=== PATIENT | female | born 1975 | race Caucasian/White ===

== ENCOUNTER 2016-12-19 13:48 | Outpatient (CLI) | payer OTHER ==
--- NOTE | 2016-12-19 17:24 | DIAGNOSTIC IMAGING REPORT ---
PROCEDURE: US OB RE-EVALUATION INDICATION: UNCERTIN POSTITION; SIZE AND DATES TECHNIQUE: Castro scale, color and spectral Doppler images of the gravid uterus. COMPARISON: OB ultrasound 11/16/2016 FINDINGS: Single intrauterine with footling breech, posterior placenta without previa and heart rate 122 bpm. ALMA measures 18.5 cm, 70th percentile. Normal closed cervix measures 4.1 cm. Diaphragm, kidneys, stomach, four-chamber heart view and profile are within normal limits. BPD 7.4 cm, 29 weeks 4 days; head circumference 27.3 cm, and 10-nfnc-5-day; abdominal circumference 25.5 cm, 29 weeks 5 days; femur length 5.7 cm, 30 weeks. Composite age 29-week 6 days. PEG 01/26/2017. Estimated weight 1459 g plus/minus 219 g (3.22 pounds). IMPRESSION: 1. Single live intrauterine , footling breech, 29 weeks 6 days 2. PEG 01/26/2017, normal interval growth
--- NOTE | 2016-12-19 17:24 | DIAGNOSTIC IMAGING REPORT ---
PROCEDURE: US OB RE-EVALUATION INDICATION: UNCERTIN POSTITION; SIZE AND DATES TECHNIQUE: Castro scale, color and spectral Doppler images of the gravid uterus. COMPARISON: OB ultrasound 11/16/2016 FINDINGS: Single intrauterine with footling breech, posterior placenta without previa and heart rate 122 bpm. ALMA measures 18.5 cm, 70th percentile. Normal closed cervix measures 4.1 cm. Diaphragm, kidneys, stomach, four-chamber heart view and profile are within normal limits. BPD 7.4 cm, 29 weeks 4 days; head circumference 27.3 cm, and 37-pjib-5-day; abdominal circumference 25.5 cm, 29 weeks 5 days; femur length 5.7 cm, 30 weeks. Composite age 29-week 6 days. PEG 01/26/2017. Estimated weight 1459 g plus/minus 219 g (3.22 pounds). IMPRESSION: 1. Single live intrauterine , footling breech, 29 weeks 6 days 2. PEG 01/26/2017, normal interval growth
== END 2016-12-19 23:00 ==
LOC: US SRH 13:48
DX: Z34.93 Encounter for supervision of normal pregnancy, unspecified, third trimester (principal); Z3A.34 34 weeks gestation of pregnancy

== ENCOUNTER 2016-12-26 15:56 | Outpatient (CLI) | payer OTHER | END 2016-12-26 16:50 | disposition home or self-care (01) | LOC: NST SRH 15:56 → OB SRH 15:59 → NST SRH 16:50 | PROC: 4A0HXCZ Measurement of Products of Conception, Cardiac Rate, External Approach (ICD-10-PCS; principal; 2016-12-26) | DX: O47.03 False labor before 37 completed weeks of gestation, third trimester (principal); Z3A.35 35 weeks gestation of pregnancy ==

== ENCOUNTER 2017-01-03 11:03 | Observation (INO) | payer OTHER ==
[~2017-01-03] VITALS: Ht 162.6 cm; Wt 126.1 kg
--- NOTE | 2017-01-03 15:37 | DIAGNOSTIC IMAGING REPORT ---
PROCEDURE: US OB LIMITED INDICATION: TO CHECK POSITION OF THE BABY TECHNIQUE: Transabdominal mcmahan scale and color Doppler imaging was obtained of the 92-wgsq-5-day gravid uterus. COMPARISON: 12/19/2016 FINDINGS: Single live intrauterine is in vertex presentation with spine anterior. Regular heart rate at 143 beats per minute. Placenta is posterior and has a normal appearance without previa or abruption. The cervix is closed and measures 3.1 cm in length. IMPRESSION: 1. Single living intrauterine in vertex presentation, similar compared to the prior study.
--- NOTE | 2017-01-03 15:37 | DIAGNOSTIC IMAGING REPORT ---
PROCEDURE: US OB LIMITED INDICATION: TO CHECK POSITION OF THE BABY TECHNIQUE: Transabdominal mcmahan scale and color Doppler imaging was obtained of the 41-uhyx-1-day gravid uterus. COMPARISON: 12/19/2016 FINDINGS: Single live intrauterine is in vertex presentation with spine anterior. Regular heart rate at 143 beats per minute. Placenta is posterior and has a normal appearance without previa or abruption. The cervix is closed and measures 3.1 cm in length. IMPRESSION: 1. Single living intrauterine in vertex presentation, similar compared to the prior study.
--- NOTE | 2017-01-03 16:32 | DIAGNOSTIC IMAGING REPORT ---
PROCEDURE: US TRANSVAGINAL PROBE INDICATION: CONFIRM CERVICAL LENGTH TECHNIQUE: Transvaginal sonographic imaging of the cervix was performed. COMPARISON: Transabdominal imaging of a gravid uterus performed earlier the same day. FINDINGS: The cervix is closed and measures 3.3 cm in length. No placenta previa or vasa previa. IMPRESSION: 1. Closed cervix without placenta previa. 2. Findings conveyed by the technologist to the floor nurse.
--- NOTE | 2017-01-03 20:13 | HISTORY AND PHYSICAL ---
ADMITTED: 01/03/2017 CHIEF COMPLAINT: 1. Pain and possible labor HISTORY OF PRESENT ILLNESS: A 41-year-old female 1, para 0, EDC 2016, presents with back pain and heartburn. This pain had onset on the day of admission and was quite severe. She contacted our office with complaint of back pain, asking for clearance to see her chiropractor, this was granted. The chiropractor evaluated her, but was concerned it may be primarily abdominal or related issue. The patient returned to my office for evaluation. Head was found to be descended to 0 station, it had been high and floating in the past. Cervix was markedly posterior. The patient was transferred to the hospital for NST and evaluation. She reports no bleeding, no rupture of membranes and no discrete feeling of contractions in the abdomen. She does have some nausea. She denies fevers, chills, URI or UTI symptoms. MEDICAL/SURGICAL HISTORY: Past medical history: Remarkable for mild preeclampsia , history of menometrorrhagia, history of obesity, history of dysfunctional uterine bleeding. MEDICATIONS: 1. vitamins 1 p.o. daily. 2. Iron tablets 325 mg p.o. daily. ALLERGIES: 1. NO KNOWN ALLERGIES. SOCIAL HISTORY: female. Smoking: None. Alcohol: None. Drug use: None. FAMILY HISTORY: Unremarkable. Denies history of cancer or complications in her family. REVIEW OF SYSTEMS: Noncontributory except as noted above. PHYSICAL EXAMINATION: GENERAL: Well-developed, well-nourished obese female in distress. VITAL SIGNS: Blood pressure 137/83, pulse 78, temperature 98.1, respirations 20. HEENT: Clear. NECK: Supple without adenopathy or thyromegaly. CHEST: Clear to auscultation and percussion. HEART: Regular rate and rhythm without murmur. ABDOMEN: Positive bowel sounds, gravid, nontender. BACK: Straight without CVA tenderness. EXTREMITIES: 1+ edema noted. NEUROLOGIC: Intact and symmetric. Deep tendon reflexes are 2+ without clonus. SKIN: Unremarkable. GENITAL: Normal external female genitalia. PELVIC: vertex is at 0 station. Cervix is far posterior and closed, though soft. LAB/IMAGING: Laboratories: NST is reactive with q.3 minute contractions, which are strong and palpable. Glucose 89, BUN 5, creatinine 0.6, sodium 138, potassium 3.9, chloride 105, CO2 25, uric acid 4.0, calcium 10.1, total protein 6.5. Albumin 2.7, total bilirubin 0.9, alk phos 141, AST 82, ALT 44, LDH 134. WBC 10.6, hemoglobin 12.6, hematocrit 37.7, platelets 232,000. Urine reveals 1+ ketones, specific gravity 1.020, pH 7.5, negative for protein, nitrite, leukocyte esterase or blood. Microscopic shows 0-1 red cells, 1-3 white cells, 3 -5 epithelial cells, 3+ bacteria. INR 0.9. Ultrasound: Shows uncomplicated vertex presentation. Placenta appears normal. Cervix is 3 cm in length by ultrasound. IMPRESSION: 1. Latent phase of labor versus false labor with marked pain. 2. Possible early urinary tract infection. 3. Preeclampsia, mild, controlled at rest. 4. A 36-week intrauterine . PLAN: Admit for observation and pain control. The patient has been started empirically on Rocephin pending cultures.
[2017-01-04 09:10] VITALS: BP 135/75
--- NOTE | 2017-01-04 10:00 | NUR ---
Pt up and about after physician visit this am. Contractions present on monitor but not felt much by patient. All of her back pain has resolved, and she feels a little pressure in her pelvic area. VE done by Dr Baird during his visit this am - remains closed and thick. No drainage or leaking of fluid. She has eaten a good breakfast, and is now walking about without difficulty. Keflex given as ordered. D/C orders received from Dr Baird, and pt sent home at 0945 with RX for keflex called in, f/u NST scheduled for next week, and pt to keep her offic appt next week. She is to drink plenty of fluids, and continue to rest. D/C to home in c/o mother and FOB.
--- NOTE | 2017-01-04 10:25 | DISCHARGE SUMMARY ---
ADMIT DATE: 01/03/2017 DISCHARGE DATE: 01/04/2017 ADMITTING DIAGNOSES: 1. labor 2. Urinary tract infection 3. Back pain DISCHARGE DIAGNOSES: 1. False labor 2. Urinary tract infection 3. Back pain BRIEF HISTORY: The patient presented with sudden onset of severe back pain associated with contractions. Bacteriuria was noted on admission. HOSPITAL COURSE: The patient was admitted. She was in an every 2-3 minute labor pattern on arrival with marked back pain. The head descended into the pelvis but the cervix remained closed. She was placed on monitor, given IV fentanyl for pain control, and ultrasound obtained confirming vertex position and a healthy-appearing placenta and fetus. Bacteriuria was noted. The patient was treated with IV Rocephin, although as further urinary tract results became available and it became clear that the urinary tract infection is relatively mild, nevertheless, it may have been instituting factor for the contractions. The patient's pain resolved. She was switched to oral medications and then pain medications stopped. She continued to have contractions, but they became irregular. On the morning of admission, she was ambulated and tolerated ambulation and oral intake without difficulty. She was therefore felt to be stable for discharge home at 36 weeks of . DISPOSITION: Home. DISCHARGE INSTRUCTIONS/MEDICATIONS: vitamins and cephalexin 500 mg p.o. t.i.d. x2 days. Follow up with me in 4 days.
== END 2017-01-04 09:45 | disposition home or self-care (01) ==
LOC: OBC SRH 11:03 → OB SRH 11:05 → OBC SRH 16:46 → OB SRH 16:46
PROVIDERS: ADMIT Family Medicine
DX: O47.03 False labor before 37 completed weeks of gestation, third trimester (principal); O23.43 Unspecified infection of urinary tract in pregnancy, third trimester; O14.03 Mild to moderate pre-eclampsia, third trimester; O09.513 Supervision of elderly primigravida, third trimester; Z3A.36 36 weeks gestation of pregnancy
CPT/HCPCS: 29242; 29243; 29247; 29263; 40003; 40021; 90004; 90074; 90100; 90469; 92680; 92860; 94060; 95059

== ENCOUNTER 2017-01-11 09:29 | Outpatient (CLI) | payer OTHER | END 2017-01-11 10:20 | disposition home or self-care (01) | LOC: OBC SRH 09:29 → OB SRH 09:30 → OBC SRH 10:20 | PROC: 4A0HXCZ Measurement of Products of Conception, Cardiac Rate, External Approach (ICD-10-PCS; principal; 2017-01-11) | DX: O14.93 Unspecified pre-eclampsia, third trimester (principal); Z3A.37 37 weeks gestation of pregnancy ==

== ENCOUNTER 2017-01-24 13:54 | Outpatient (CLI) | payer OTHER | END 2017-01-24 14:45 | disposition home or self-care (01) | LOC: NST SRH 13:54 → OB SRH 13:57 → NST SRH 14:45 | PROC: 4A0HXCZ Measurement of Products of Conception, Cardiac Rate, External Approach (ICD-10-PCS; principal; 2017-01-24) | DX: O14.03 Mild to moderate pre-eclampsia, third trimester (principal); Z3A.39 39 weeks gestation of pregnancy ==

== ENCOUNTER 2017-01-28 11:59 | Inpatient (IN) | payer OTHER ==
--- NOTE | 2017-01-28 13:52 | DIAGNOSTIC IMAGING REPORT ---
PROCEDURE: US ABDOMEN ULTRASOUND-LIMITED INDICATION: RULE OUT CHOLELITHIASIS TECHNIQUE: Castro scale and color Doppler sonographic images of the abdomen were obtained without comparison. COMPARISON: None. FINDINGS: The liver is normal in size, contour, and echotexture. No mass or intrahepatic biliary dilatation. The gallbladder contains multiple gravel like stones. The wall is normal thickness measuring 2 mm No pericholecystic fluid or Humphrey sign. The extrahepatic common duct is normal measuring 6 mm The pancreas is not well seen The abdominal aorta is normal in its course and caliber. The retrohepatic inferior vena cava is patent. There is appropriate hepatopetal flow in the portal vein. The right kidney measures 13 cm in length. There is no perihepatic or perisplenic ascites. Humphries fetus, heart rate 137 IMPRESSION: 1. Cholelithiasis 2. Results were called to [facility]
--- NOTE | 2017-01-29 08:22 | HISTORY AND PHYSICAL ---
ADMITTED: 01/28/2017 CHIEF COMPLAINT: 1. Preeclampsia HISTORY OF PRESENT ILLNESS: A 41-year-old, 1, para 0, estimated date of confinement 01/31/2017, estimated gestational age 40 weeks, presents with a diagnosis of preeclampsia and term intrauterine for induction. The patient's has been uncomplicated except for maternal obesity. Until late in her course, approximately 3-4 weeks ago, the patient began to have elevated blood pressures. These were controlled with bed rest. She then developed mild proteinuria, which also improved with bed rest. She did not develop hyperreflexia. She did develop marked pedal edema. Because of persistent and increasing proteinuria, a decision was made to admit for new induction at term. The patient's NSTs have been reactive on a weekly basis. MEDICAL/SURGICAL HISTORY: history: Uncomplicated except as noted above. Group B strep status negative. labs include negative STD testing. Blood type A positive, hepatitis B surface antigen negative, VDRL negative, HIV negative. Rubella status immune. Also remarkable for dysfunctional uterine bleeding. Surgeries: The patient has history of hymenotomy. MEDICATIONS: 1. vitamins. ALLERGIES: 1. PENICILLIN. SOCIAL HISTORY: female, employed. Smoking: None. Drug use: None. FAMILY HISTORY: Negative for diabetes or preeclampsia. Negative for defects or genetic problems. REVIEW OF SYSTEMS: General: Denies fevers, chills, malaise. HEENT: Denies hearing change, vision change or rhinitis. Respiratory: Denies shortness of breath, cough, or wheezing. Cardiac: Denies chest pain, palpitations, or paroxysmal nocturnal dyspnea. Gastrointestinal: Denies nausea, vomiting, diarrhea, or constipation. Genitourinary: Denies dysuria, frequency, or hematuria. Musculoskeletal: The patient admits to mid back pain, which radiates to the right upper quadrant. This has occurred periodically throughout the and has been controlled with Percocet. It is felt to be musculoskeletal in origin, although there has been some suspicion of possible gallbladder symptomatology. PHYSICAL EXAMINATION: GENERAL: Well-developed, well-nourished female in no acute distress. VITAL SIGNS: Blood pressure 140/90, pulse 80, respirations 20, temperature afebrile. HEENT: Clear. NECK: Supple without adenopathy or thyromegaly. LUNGS: Clear to auscultation and percussion. HEART: Regular rate and rhythm without murmur. ABDOMEN: Gravid, nontender with vertex presentation. heart tones 130 beats per minute BACK: Shows no CVA tenderness. Point of pain is on the vertebrae at approximately T5 level, but there is no tenderness in that location. GENITAL: Normal external female genitalia. Vaginal vault clear. Cervix is high at 30% and fingertip vertex presentation confirmed. EXTREMITIES: Without cyanosis, clubbing but have 2+ edema to the mid mtz. Deep tendon reflexes are 3+ and symmetric without clonus. LAB/IMAGING: Urine dip in the office shows 1+ proteinuria with no evidence of infection. Labs on admission include glucose 86, BUN 8, creatinine 0.5, sodium 137, potassium 4.0, chloride 104, bilirubin 0.2, alkaline phosphatase 122, AST 29, ALT 22. Urine protein 40.1. Urine creatinine random 182. INR 0.9. WBC 9.2, hemoglobin 11.9, hematocrit 35.1, platelets 226. Urinalysis reveals specific gravity 1.020, pH 6.0, negative leukocyte esterase, negative blood, negative nitrites. Abdominal ultrasound performed on admission shows cholelithiasis without evidence of acute inflammation. NST on admission shows a reactive NST without contractions. IMPRESSION: 1. Term intrauterine 2. Preeclampsia, mild 3. Cholelithiasis with intermittent biliary colic but without cholecystitis 4. Back pain, probably secondary to cholelithiasis PLAN: Admit for induction. Anticipate vaginal delivery. Anticipate deferring management of cholelithiasis until status.
--- NOTE | 2017-01-29 20:24 | OPERATIVE REPORT ---
DATE OF SURGERY: 01/29/2017 SURGEON: Fercho Baird MD CATERING TRUCK DRIVER: Jaret Hsieh MD PREOPERATIVE DIAGNOSES: 1. Failure to progress in labor 2. Preeclampsia 3. Term intrauterine POSTOPERATIVE DIAGNOSES: 1. Failure to progress in labor 2. Preeclampsia 3. Term intrauterine PROCEDURE PERFORMED: 1. Primary low transverse section ANESTHESIA: Spinal. COMPLICATIONS: None. ESTIMATED BLOOD LOSS: 550 mL. CONDITION: Stable postprocedure. DRAINS: Mittal catheter. SURGICAL TECHNIQUE: The patient was taken to the operating theater after appropriate consent had been obtained. Spinal anesthesia was induced. The patient was placed in supine position with the right lateral hip roll. Sterile prep and drape was performed in the routine fashion and a Pfannenstiel incision sharply created and carried down sharply through the fascia and to the peritoneum, which was bluntly entered. Bladder blade was placed, bladder flap was created and Andrey ring placed in position. Lower uterine segment was sharply incised and the amnion sharply entered. Clear fluid was obtained. Incision was extended bilaterally bluntly and vertex identified and elevated into the incision and with fundal pressure, delivered onto the abdomen. Vigorous female infant was obtained, Apgars 8 and 9. Cord blood samples were obtained and the was passed to the awaiting nursery team. Placenta was manually extracted and found to be normal on examination. Uterus was depleted with a gauze sponge and ring clamps were placed on the margins of the incision. Cervix was confirmed to be open. Incision was then closed with a 0 Polysorb running locked suture and a second layer of 0 Polysorb suture. For further hemostasis, 3 [id number] sutures were placed and hemostasis obtained. Then 3-0 Polysorb suture was then used to bring together the peritoneum and hemostasis was confirmed. Rectus muscle was loosely opposed with 3-0 sutures. The fascia was then closed with 0 Polysorb suture and hemostasis again confirmed. The subcutaneous tissue was closed with 3-0 Polysorb interrupted sutures and the skin closed with Insorb dissolvable yuri. Hemostasis was confirmed. Sterile dressing was placed. Instrument, sponge, and needle counts were correct.
--- NOTE | 2017-01-29 20:24 | OPERATIVE REPORT ---
DATE OF SURGERY: 01/29/2017 SURGEON: Fercho Baird MD SPINNING DOFFER: Jaret Hsieh MD PREOPERATIVE DIAGNOSES: 1. Failure to progress in labor 2. Preeclampsia 3. Term intrauterine POSTOPERATIVE DIAGNOSES: 1. Failure to progress in labor 2. Preeclampsia 3. Term intrauterine PROCEDURE PERFORMED: 1. Primary low transverse section ANESTHESIA: Spinal. COMPLICATIONS: None. ESTIMATED BLOOD LOSS: 550 mL. CONDITION: Stable postprocedure. DRAINS: Mittal catheter. SURGICAL TECHNIQUE: The patient was taken to the operating theater after appropriate consent had been obtained. Spinal anesthesia was induced. The patient was placed in supine position with the right lateral hip roll. Sterile prep and drape was performed in the routine fashion and a Pfannenstiel incision sharply created and carried down sharply through the fascia and to the peritoneum, which was bluntly entered. Bladder blade was placed, bladder flap was created and Andrey ring placed in position. Lower uterine segment was sharply incised and the amnion sharply entered. Clear fluid was obtained. Incision was extended bilaterally bluntly and vertex identified and elevated into the incision and with fundal pressure, delivered onto the abdomen. Vigorous female infant was obtained, Apgars 8 and 9. Cord blood samples were obtained and the was passed to the awaiting nursery team. Placenta was manually extracted and found to be normal on examination. Uterus was depleted with a gauze sponge and ring clamps were placed on the margins of the incision. Cervix was confirmed to be open. Incision was then closed with a 0 Polysorb running locked suture and a second layer of 0 Polysorb suture. For further hemostasis, 3 [id number] sutures were placed and hemostasis obtained. Then 3-0 Polysorb suture was then used to bring together the peritoneum and hemostasis was confirmed. Rectus muscle was loosely opposed with 3-0 sutures. The fascia was then closed with 0 Polysorb suture and hemostasis again confirmed. The subcutaneous tissue was closed with 3-0 Polysorb interrupted sutures and the skin closed with Insorb dissolvable yuri. Hemostasis was confirmed. Sterile dressing was placed. Instrument, sponge, and needle counts were correct.
[2017-01-30] VITALS: BP 116/61
[2017-01-30 03:30] VITALS: BP 113/61
--- NOTE | 2017-01-30 08:02 | Progress Note ---
Subjective General Post op LTCS and doing well per mom and nursing. Has been up and passing gas. Would like breakfast this am. No concern. Physical Exam Vital Signs / I&Os Vital Signs Date Time Temp Pulse Resp B/P Pulse O2 O2 Flow FiO2 Ox Delivery Rate 01/30 0330 97.9 82 24 113/61 / 0000 97.9 83 24 116/61 03 1835 97.5 77 23 129/74 100 General Appearance Alert HEENT Normal exam Cardiovascular Normal exam Abdomen obese, post op incision without erythema, minimal d/c LAB Results Laboratory Tests 01/30 0505 Hematology Hgb (12.0 - 16.0 gm/dL) 10.2 Hct (36.0 - 46.0 %) 30.9 Assessment and Plan Problem List 1. Term Plan post csection 2. care following delivery Plan doing well, hct stable. Will start on diet and advance. Likely to stay overnight and d/c tomorrow.
[2017-01-30 11:56] VITALS: BP 144/68
[2017-01-30 17:30] VITALS: BP 138/78
[2017-01-30 21:00] VITALS: BP 130/74
[2017-01-31 00:02] VITALS: BP 104/60
[2017-01-31 04:50] VITALS: BP 149/81
--- NOTE | 2017-01-31 06:53 | Progress Note ---
Subjective General Doing well no concerns per mom or nursing staff. No cp,sob, dizziness. No fevers. Has normal lochia. Up and caring for self and baby. Physical Exam Vital Signs / I&Os Vital Signs Date Time Temp Pulse Resp B/P Pulse O2 O2 Flow FiO2 Ox Delivery Rate 01/31 0450 98.1 90 20 149/81 01/31 0002 97.9 91 20 104/60 01/30 2100 98.4 98 18 130/74 01/30 1730 98.6 97 18 138/78 97 01/30 1156 98.8 97 18 144/68 I&O 01/31 0000 01/30 1600 01/30 0800 Intake Total 408 Output Total 451 Balance -43 General Appearance Alert, Cooperative HEENT Normal exam Lungs Clear to auscultation, Normal air movement Cardiovascular Regular rate and rhythm Abdomen obese, inc c/d/i Extremities neg homans Assessment and Plan Problem List 1. care following delivery Plan Post LTCS doing well. No concerns working on BF. D/c today f/u in 2 weeks csection check and PP check at 6 weeks.
[2017-01-31] MEDS ORDERED: OXYCODONE/ACETA1 TA1 PO (06:54)
--- NOTE | 2017-01-31 06:57 | Provider's Discharge Care Plan ---
Problem, Goal, Plan Problem List 1. care following delivery Instructions: Take meds as directed, f/u at 2weeks/6 weeks, No heavy lifting, OK tylenol max 4 g per day ok IBU 600mg q 6hrs PRN
[2017-01-31 09:02] VITALS: BP 132/75
== END 2017-01-31 15:00 | disposition home or self-care (01) | DRG 766 ==
LOC: OB SRH 11:59
PROVIDERS: ADMIT Family Medicine
PROC: 10D00Z1 Extraction of Products of Conception, Low, Open Approach (ICD-10-PCS; principal; 2017-01-29 16:45)
DX: O14.04 Mild to moderate pre-eclampsia, complicating childbirth (principal); Z37.0 Single live birth; O62.1 Secondary uterine inertia; O99.62 Diseases of the digestive system complicating childbirth; K80.20 Calculus of gallbladder without cholecystitis without obstruction; Z3A.39 39 weeks gestation of pregnancy
CPT/HCPCS: 40011; 40021; 50002; 60001; 83366; 83411; 83426; 83468; 83501; 83526; 84038; 85372; 90001; 90004; 90074; 90100; 90155; 90469; 91004; 91162; 91163; 92680; 92860; 94060; 95059

== ENCOUNTER 2017-03-28 20:08 | Emergency (ER) | payer OTHER ==
[~2017-03-28 20:08] MED LIST: OXYCODONE/ACETA1 TA1 PO
--- NOTE | 2017-03-28 22:25 | ED NURSING NOTES ---
Clinical Report - Nurses [facility] [address] [place] [address] 03/28/2017 20:08 Patient: TRISHA ZHOU TRIAGE Triage time 20:13. Acuity: LEVEL 3. Chief Complaint: ABDOMINAL PAIN. Alert. KAVITHA COMA SCORE: Kavitha Coma Scale: 15- eyes open spontaneously (4); best verbal response- oriented x 4 (5); best motor response- obeys commands (6). --20:19 Alistair Gilliland R.N. 20:12 03/28/17. BP: 157/95 taken while sitting. HR: 97. RR: 24 (regular and labored). O2 saturation: 99% on room air. Temp: 97.4 F (oral). Pain level now: 09/03. --20:19 Alistair Gilliland R.N. Weight: 122 kg stated. Height/Length: 64 inches Per Patient. BMI: 46.2. --20:17 Alistair Gilliland R.N. Medications Vitamins Oral. --20:45 Alistair Gilliland R.N. Percocet Oral. --20:45 Alistair Gilliland R.N. The following entry was struck by Alistair Gilliland R.N., 20:45 (03/28/17) Reason - other. <<STRICKEN ENTRY-- Unable to Obtain. --20:14 Alistair Gilliland R.N. --END STRIKE>>. Allergies Penicillins. --20:14 Alistair Gilliland R.N. Medical tape. --20:14 Alistair Gilliland R.N. History Arrived by private vehicle. Historian: patient. Accompanied by family. Onset. ("for several months"). ( pt is Scheduled with her doctor for a gallbladder surgery on April 11, her doctor told her to come to the ER for pain control.). SOCIAL HX: Never smoker. No alcohol use or drug use. ( Denies SI/HI). SELF HARM ASSESSMENT: A self harm assessment was performed. FALL RISK ASSESSMENT: Fall risk assessment completed. No fall risk identified. NUTRITIONAL RISK ASSESSMENT: The nutritional risk assessment revealed no deficiencies. FUNCTIONAL ASSESSMENT: Functional assessment: no impairments noted. LEARNING NEEDS ASSESSMENT: The learning needs assessment revealed no barriers. --20:19 Alistair Gilliland R.N. PROBLEMS: . Cholelithiasis. --20:15 Alistair Gilliland R.N. ADDITIONAL SURGERIES: Dilatation & Curettage. Hymenectomy. Hysteroscopy. --20:45 Alistair Gilliland R.N. Interventions ID band on patient. To treatment room. --20:19 Alistair Gilliland R.N. PHYSICAL ASSESSMENT GENERAL / NEURO / PSYCH: Alert. Oriented X 4. HEENT: Mucous membranes are pink. GI / : Abdomen soft. Abdominal tenderness. SKIN: Skin is warm and dry. --20:19 Alistair iGlliland R.N. 21:20 03/28/17. BP: 143/78. HR: 78. RR: 18 (unlabored). O2 saturation: 96% on room air. Pain level now: 03/04. --21:28 Alistair Gilliland R.N. 21:44 03/28/17. BP: 149/88. HR: 79. O2 saturation: 98% on room air. --21:45 Alistair Gilliland R.N. 22:40:. ( Patient calm and awake, alert and oriented x3). --22:51 Alistair Gilliland R.N. NURSING PROGRESS NOTES Patient gowned. Reassurance given. Two patient identifiers checked. Call light placed in reach. Side rails up x 1. Bed placed in lowest position. Brakes of bed on. Patient ready for evaluation- chart flagged. Patient waiting for evaluation. --20:19 Alistair Gilliland R.N. 20:28 03/28/2017 Site #1 started via IV in the right antecubital space with an 20g angiocath using 1% intra-dermal lidocaine, with aseptic technique and good blood return; one attempt. Blood drawn: rainbow set. Labeled in the presence of the patient and sent to the lab. Saline lock flushed with 10 mL saline. --20:28 Alistair Gilliland R.N. 20:35 03/28/2017 Started bag #1 1000 mL IV Fluids IV NS (Saline); at 1000 mL/hr over 1 hour(s) via site #1. Allergies verified and confirmed 5 rights. IV patency established. IV site checked: no pain, redness, or swelling. IV flushed thoroughly pre- and post-medication administration. Completed per protocol. --20:40 Alistair Gilliland R.N. 20:38 03/28/2017 Dilaudid (HYDROmorphone HCl PF) IVP 1 mg given over 2 minute(s) via site #1. IV patency established. IV site checked: no pain, redness, or swelling. IV flushed thoroughly pre- and post-medication administration. IVP given by RN. --20:40 Alistair Gilliland R.N. 21:25 03/28/2017 Dilaudid (HYDROmorphone HCl PF) IVP 1 mg given over 2 minute(s) via site #1. Allergies verified, confirmed 5 rights and sedative warning given to the patient. IV patency established. IV site checked: no pain, redness, or swelling. IV flushed thoroughly pre- and post-medication administration. IVP given by RN. --21:27 Alistair Gilliland R.N. ( [employer] tech arrived and is with patient). --21:29 Alistair Gilliland R.N. 21:35 03/28/2017 Started bag #1 1000 mL IV Fluids IV NS (Saline); at 1000 mL/hr over 1 hour(s) via site #1. Allergies verified and confirmed 5 rights. IV patency established. IV site checked: no pain, redness, or swelling. IV flushed thoroughly pre- and post-medication administration. Completed per protocol. --23:02 Alistair Gilliland R.N. 21:35 03/28/2017 IV Fluids IV NS Discontinued: completed. Total amount infused: 1000 mL. IV patency established. IV site checked: no pain, redness, or swelling. IV flushed thoroughly. --23:01 Alistair Gilliland R.N. 22:35 03/28/2017 IV Fluids IV NS Discontinued: completed. Total amount infused: 1000 mL. IV patency established. IV site checked: no pain, redness, or swelling. IV flushed thoroughly. --23:02 Alistair Gilliland R.N. 22:45 03/28/2017 Dilaudid (HYDROmorphone HCl PF) IVP 1 mg given over 2 minute(s) via site #1. Allergies verified, confirmed 5 rights and sedative warning given to the patient and patient's urologist physician. IV patency established. IV site checked: no pain, redness, or swelling. IV flushed thoroughly pre- and post-medication administration. IVP given by RN. --22:50 Alistair Gilliland R.N. DISPOSITION / DISCHARGE 22:59 03/28/17. HR: 72. O2 saturation: 94% on room air. --22:59 Alistair Gilliland R.N. 22:45 03/28/17. BP: 128/67. HR: 76. RR: 18. O2 saturation: 97% on room air. Pain level now: 01/04. --23:00 Alistair Gilliland R.N. Departure time: 23:00. Condition at departure: stable. No learning barriers present. Discharge instructions provided and reviewed with the patient. Reviewed warnings (sedation warning and medication warnings). Reviewed medication(s) side effects, precautions, dosing and course information. Treatments reviewed. Reviewed referrals for followup. Patient and urologist physician verbalized understanding. Written instructions provided in Telugu. The patient was discharged home and accompanied by urologist physician. She left the Emergency Department ambulatory and via private vehicle. [employer] Hab[employer] Biologist driving. --23:00 Alistair Gilliland R.N. 23:01 03/28/2017 Site #1 removed upon discharge. Manual pressure and bandage applied. --23:01 Alistair Gilliland R.N. Locked/Released at 03/28/2017 23:04 by Alistair Gilliland R.N.
--- NOTE | 2017-03-28 22:25 | ED CLINICAL REPORT ---
Clinical Report - Physicians/Mid Levels [facility] [address] [place] [address] 03/28/2017 20:08 [id number] Time Seen: 22:11 Mar 28 2017. Arrived- By private vehicle. Historian- patient. HISTORY OF PRESENT ILLNESS Chief Complaint: ABDOMINAL PAIN. It is described as "pain" and it is described as located in the right flank and the right upper quadrant and right abdomen. The patient has had nausea and loss of appetite. No vomiting or diarrhea. (patient is 2 months , with history of cololithiasis, reports pain since around 1 PM. Patient has taken 2 Percocet, with some relief. Denies any shortness of breath. Denies any urgency or frequency. Patient denies any fatty or fried food. Had rice in the afternoon. Reports similar pain previously. Denies any shortness of breath, fevers or cough.). REVIEW OF SYSTEMS No constipation, difficulty with urination, pain with urination, fever or sore throat. No blurred vision or chills. All systems otherwise negative, except as recorded above. 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 Problems: . Cholelithiasis. Additional Surgeries: Dilatation & Curettage. Hymenectomy. Hysteroscopy. Medications: Percocet Oral. Vitamins Oral. Allergies: Medical tape. Penicillins. SOCIAL HISTORY Never smoker. No alcohol use. ADDITIONAL NOTES The nursing notes have been reviewed. PHYSICAL EXAM Vital Signs: 03/28/2017 20:12 BP: 157/95. HR: 97. RR: 24. O2 saturation: 99%. Temp: 97.4 F. Pain level now: 10/10. Appearance: Alert. No acute distress. ENT: Ears normal. Nose normal. No pharyngeal erythema or tonsillar exudate. Neck: Normal inspection. No lymphadenopathy. CVS: Normal heart rate and rhythm. Heart sounds normal. Respiratory: No respiratory distress. Breath sounds normal. No accessory muscle use. Abdomen: Soft. Moderate tenderness in the right upper quadrant and epigastric area with guarding present. (c section scar c/d/i). Back: Normal inspection. No CVA tenderness. Skin: Skin warm. Normal skin color. No rash. Neuro: Oriented X 3. LABS, X-RAYS, AND EKG Laboratory Tests: UA-Culture if indicated: (ESVIN: 03/28/2017 20:25) ( [facility] 03/28/[facility] 21:14) Final results Test Result Flag Units (Reference) URINE COLOR YELLOW URINE APPEARANCE SL CLOUDY URINE GLUCOSE NEGATIVE (NEGATIVE) URINE BILIRUBIN NEGATIVE (NEGATIVE) URINE KETONE NEGATIVE (NEGATIVE) URINE SPECIFIC GRAVITY 1.025 (1.010-1.030) URINE PH 6.0 (5.0-8.0) URINE PROTEIN NEGATIVE (NEGATIVE) URINE UROBILINOGEN 0.2 EU/dL (0.2-1.0) URINE NITRITE NEGATIVE (NEGATIVE) URINE BLOOD NEGATIVE (NEGATIVE) URINE LEUK ESTERASE NEGATIVE (NEGATIVE) URINE RBC NONE SEEN rbc/hpf (0-1) URINE WBC 1-3 wbc/hpf (0-1) URINE EPITHELIAL CELLS >15 EPI/hpf (0-5) URINE BACTERIA FEW (1+) (NONE SEEN) URINE COMMENT CULT NOT INDICATED URINE CULTURES ARE SET-UP BASED ON THE FOLLOWING CRITERIA:POSITIVE NITRITEPOSITIVE LEUKOCYTE ESTERASEGREATER THAN 10 WHITE BLOOD CELLSMODERATE (2+) OR GREATER BACTERIA CBC w Diff: (ESVIN: 03/28/2017 20:25) ( [facility] 03/28/2017 20:52) Final results Test Result Flag Units (Reference) WHITE BLOOD COUNT 9.9 K/uL (4.5-11.5) RED BLOOD COUNT 4.38 M/uL (4.00-5.20) HEMOGLOBIN 13.2 gm/dL (12.0-16.0) HEMATOCRIT 39.4 % (36.0-46.0) MEAN CELL VOLUME 90 fL (80-100) MEAN CORPUSCULAR HGB 30 pg (26-34) MEAN CORPUSCULAR HGB CONC 34 g/dL (31-37) RED CELL DISTRIBUTION WIDTH 13.3 % (11.6-14.8) PLATELET COUNT 264 K/uL (150-400) NEUTROPHIL % 78.9 H % (50-75) LYMPH % 12.4 L % (25-40) MONO % 7.5 % (3-14) EOSINOPHIL % 1.2 % (0-4) BASOPHIL % 0 % (0-2) Lipase: (ESVIN: 03/28/2017 20:25) ( [facility] 03/28/2017 21:13) Final results Test Result Flag Units (Reference) LIPASE 105 U/L (73-393) CMP: (ESVIN: 03/28/2017 20:25) ( M[facility] 03/28/2017 21:13) Final results Test Result Flag Units (Reference) GLUCOSE 103 mg/dL (70-110) BUN 13 mg/dL (7-18) CREATININE 0.7 mg/dL (0.6-1.3) Estimated GFR >60 mL/min Estimated GFR- >60 mL/min Note: Persistent reduction over 3 months in eGFR<60 mL/min/1.73 m2 defines CKD. Patients with eGFR values>=60 mL/min/1.73 m2 may also have CKD if evidence ofpersistent proteinuria. Additional information may be foundat www.[email or web address].org. SODIUM 143 mmol/L (136-145) POTASSIUM 4.0 mmol/L (3.5-5.1) CHLORIDE 105 mmol/L (98-107) CARBON DIOXIDE 25 mmol/L (21-32) CALCIUM 8.6 mg/dL (8.5-10.1) TOTAL PROTEIN 7.3 g/dL (6.4-8.2) ALBUMIN 3.8 g/dL (3.3-5.0) BILIRUBIN, TOTAL 0.7 mg/dL (0.0-1.0) ALKALINE PHOSPHATASE 159 H U/L (46-116) AST (SGOT) 114 H U/L (15-37) ALT (SGPT) 88 H U/L (12-78) . Note - Tests: (US : Abd with cbc of 9, some contractions with gb, otherwise normal wall + murphys). PROGRESS AND PROCEDURES Course of Care: Patient here in the ER with acute cholelithiasis, questionable cholecystitis, no leukocytosis. No gallbladder wall thickening, slightly enlarged common bile duct. Patient at this time was given multiple options including hospitalization, and possible and likely surgery tomorrow, in addition she was given option to go home return if worsening, or follow-up with Dr. Thompson, or continue her scheduled surgery on the . Patient had a long lengthy discussion with her mom and family reports to this, and inquired about the possibility of scheduled surgery for tomorrow, Jay being discharged currently, this is a slightly typical option, as there are o sore tomorrow. I discussed this with the patient, and at this time she wishes to go home. I do find is appropriate, she is in no acute distress, given 3 doses of Dilaudid, patient is breast-feeding, urged to pump and dump, and to return if any symptoms worsen. No signs of acute leukocytosis, no gallbladder wall thickening. Patient to return if any symptoms worsen acutely. Nonseptic patient, has Percocet at home. 03/28/2017 21:44 BP: 149/88. HR: 79. O2 saturation: 98%. 03/28/2017 21:20 BP: 143/78. HR: 78. RR: 18. O2 saturation: 96%. Pain level now: 4/10. Patient is stable. Symptoms better. Patient/family counseled. Disposition: Discharged. CLINICAL IMPRESSION Cholelithiasis. INSTRUCTIONS Drink plenty of fluids. (can breast feed after about 4-5 hours from Dilauidid). (Electronically signed by Esther Jacob P.A.-C 03/28/2017 22:45)
--- NOTE | 2017-03-28 22:25 | ED ORDER SUMMARY ---
..... Patient: TRISHA ZHOU OrderSheet [facility] VisitID: [id number] [address] [place] [address] 41y, F Registration Date/Time: 03/28/2017 ORDER SHEET Weight: 122.0 kg (stated) Allergies: Penicillins, Medical tape GENERAL ORDERS: CBC w Diff Urgent (20:23 03/28/2017 EKoroleva P.A.-C) (20:27 DDavis R.N.) CMP Urgent (20:03/28/2017 EKoroleva P.A.-C) (20:27 DDavis R.N.) Lipase Urgent (20:03/28/2017 EKoroleva P.A.-C) (20:27 DDavis R.N.) UA-Culture if indicated Urgent (20:23 03/28/2017 EKoroleva P.A.-C) (Ack 20:28 [facility] Out[facility] Phlebotomist) (20:35 TBowen R.N.) US Abdomen Limited (Yes) Urgent (20:30 03/28/2017 EKoroleva P.A.-C) (Ack 20:35 [facility] Outpatient Phlebotomist) MEDICATION ORDERS: IV FLUIDS: IV NS : initial bolus 1000 mL (1000 mL/hr), then 1000 mL/hr for X1 (NOW); Lewis (20:23 03/28/2017 EKoroleva P.A.-C) (20:40 DDavis R.N.) Dilaudid IV 1 mg (HIGH ALERT MEDICATION, NOW) (20:23 03/28/2017 EKoroleva P.A.-C) (20:40 DDavis R.N.) Dilaudid IV 1 mg (HIGH ALERT MEDICATION, NOW) (21:02 03/28/2017 EKoroleva P.A.-C) (Ack 21:20 DDavis R.N.) (21:28 DDavis R.N.) Dilaudid IV 1 mg (HIGH ALERT MEDICATION, NOW) (22:25 03/28/2017 EKoroleva P.A.-C) (Ack 22:36 DDavis R.N.) (22:50 DDavis R.N.) ORDER SHEET NOTES: [Electronically signed by Esther Jacob P.A.-C (22:45 03/28/2017)] [Electronically signed by Alistair Gilliland R.N. (23:04 03/28/2017)] [Electronically locked/signed by Alistair Gilliland R.N. (23:04 03/28/2017)]
--- NOTE | 2017-03-28 22:25 | ED ORDER SUMMARY ---
..... Patient: TRISHA ZHOU OrderSheet [facility] VisitID: [id number] [address] [place] [address] 41y, F Registration Date/Time: 03/28/2017 ORDER SHEET Weight: 122.0 kg (stated) Allergies: Penicillins, Medical tape GENERAL ORDERS: CBC w Diff Urgent (20:23 03/28/2017 EKoroleva P.A.-C) (20:27 DDavis R.N.) CMP Urgent (20:03/28/2017 EKoroleva P.A.-C) (20:27 DDavis R.N.) Lipase Urgent (20:03/28/2017 EKoroleva P.A.-C) (20:27 DDavis R.N.) UA-Culture if indicated Urgent (20:23 03/28/2017 EKoroleva P.A.-C) (Ack 20:28 [employer] [facility] Enterprise Resource Analyst) (20:35 TBowen R.N.) US Abdomen Limited (Yes) Urgent (20:30 03/28/2017 EKoroleva P.A.-C) (Ack 20:35 [employer] [facility] Enterprise Resource Analyst) MEDICATION ORDERS: IV FLUIDS: IV NS : initial bolus 1000 mL (1000 mL/hr), then 1000 mL/hr for X1 (NOW); Lewis (20:23 03/28/2017 EKoroleva P.A.-C) (20:40 DDavis R.N.) Dilaudid IV 1 mg (HIGH ALERT MEDICATION, NOW) (20:23 03/28/2017 EKoroleva P.A.-C) (20:40 DDavis R.N.) Dilaudid IV 1 mg (HIGH ALERT MEDICATION, NOW) (21:02 03/28/2017 EKoroleva P.A.-C) (Ack 21:20 DDavis R.N.) (21:28 DDavis R.N.) Dilaudid IV 1 mg (HIGH ALERT MEDICATION, NOW) (22:25 03/28/2017 EKoroleva P.A.-C) (Ack 22:36 DDavis R.N.) (22:50 DDavis R.N.) ORDER SHEET NOTES: [Electronically signed by Esther Jacob P.A.-C (22:45 03/28/2017)] [Electronically signed by Alistair Gilliland R.N. (23:04 03/28/2017)] [Electronically locked/signed by Alistair Gilliland R.N. (23:04 03/28/2017)]
--- NOTE | 2017-03-28 22:25 | ED NURSING NOTES ---
Clinical Report - Nurses [facility] [address] [place] [address] 03/28/2017 20:08 Patient: TRISHA ZHOU TRIAGE Triage time 20:13. Acuity: LEVEL 3. Chief Complaint: ABDOMINAL PAIN. Alert. KAVITHA COMA SCORE: Kavitha Coma Scale: 15- eyes open spontaneously (4); best verbal response- oriented x 4 (5); best motor response- obeys commands (6). --20:19 Alistair Gilliland R.N. 20:12 03/28/17. BP: 157/95 taken while sitting. HR: 97. RR: 24 (regular and labored). O2 saturation: 99% on room air. Temp: 97.4 F (oral). Pain level now: 09/03. --20:19 Alistair Gilliland R.N. Weight: 122 kg stated. Height/Length: 64 inches Per Patient. BMI: 46.2. --20:17 Alistair Gilliland R.N. Medications Vitamins Oral. --20:45 Alistair Gilliland R.N. Percocet Oral. --20:45 Alistair Gilliland R.N. The following entry was struck by Alistair Gilliland R.N., 20:45 (03/28/17) Reason - other. <<STRICKEN ENTRY-- Unable to Obtain. --20:14 Alistair Gilliland R.N. --END STRIKE>>. Allergies Penicillins. --20:14 Alistair Gilliland R.N. Medical tape. --20:14 Alistair Gilliland R.N. History Arrived by private vehicle. Historian: patient. Accompanied by family. Onset. ("for several months"). ( pt is Scheduled with her doctor for a gallbladder surgery on April 11, her doctor told her to come to the ER for pain control.). SOCIAL HX: Never smoker. No alcohol use or drug use. ( Denies SI/HI). SELF HARM ASSESSMENT: A self harm assessment was performed. FALL RISK ASSESSMENT: Fall risk assessment completed. No fall risk identified. NUTRITIONAL RISK ASSESSMENT: The nutritional risk assessment revealed no deficiencies. FUNCTIONAL ASSESSMENT: Functional assessment: no impairments noted. LEARNING NEEDS ASSESSMENT: The learning needs assessment revealed no barriers. --20:19 Alistair Gilliland R.N. PROBLEMS: . Cholelithiasis. --20:15 Alistair Gilliland R.N. ADDITIONAL SURGERIES: Dilatation & Curettage. Hymenectomy. Hysteroscopy. --20:45 Alistair Gilliland R.N. Interventions ID band on patient. To treatment room. --20:19 Alistair Gilliland R.N. PHYSICAL ASSESSMENT GENERAL / NEURO / PSYCH: Alert. Oriented X 4. HEENT: Mucous membranes are pink. GI / : Abdomen soft. Abdominal tenderness. SKIN: Skin is warm and dry. --20:19 Alistair Gilliland R.N. 21:20 03/28/17. BP: 143/78. HR: 78. RR: 18 (unlabored). O2 saturation: 96% on room air. Pain level now: 03/04. --21:28 Alistair Gilliland R.N. 21:44 03/28/17. BP: 149/88. HR: 79. O2 saturation: 98% on room air. --21:45 Alistair Gilliland R.N. 22:40:. ( Patient calm and awake, alert and oriented x3). --22:51 Alistair Gilliland R.N. NURSING PROGRESS NOTES Patient gowned. Reassurance given. Two patient identifiers checked. Call light placed in reach. Side rails up x 1. Bed placed in lowest position. Brakes of bed on. Patient ready for evaluation- chart flagged. Patient waiting for evaluation. --20:19 Alistair Gilliland R.N. 20:28 03/28/2017 Site #1 started via IV in the right antecubital space with an 20g angiocath using 1% intra-dermal lidocaine, with aseptic technique and good blood return; one attempt. Blood drawn: rainbow set. Labeled in the presence of the patient and sent to the lab. Saline lock flushed with 10 mL saline. --20:28 Alistair Gilliland R.N. 20:35 03/28/2017 Started bag #1 1000 mL IV Fluids IV NS (Saline); at 1000 mL/hr over 1 hour(s) via site #1. Allergies verified and confirmed 5 rights. IV patency established. IV site checked: no pain, redness, or swelling. IV flushed thoroughly pre- and post-medication administration. Completed per protocol. --20:40 Alistair Gilliland R.N. 20:38 03/28/2017 Dilaudid (HYDROmorphone HCl PF) IVP 1 mg given over 2 minute(s) via site #1. IV patency established. IV site checked: no pain, redness, or swelling. IV flushed thoroughly pre- and post-medication administration. IVP given by RN. --20:40 Alistair Gilliland R.N. 21:25 03/28/2017 Dilaudid (HYDROmorphone HCl PF) IVP 1 mg given over 2 minute(s) via site #1. Allergies verified, confirmed 5 rights and sedative warning given to the patient. IV patency established. IV site checked: no pain, redness, or swelling. IV flushed thoroughly pre- and post-medication administration. IVP given by RN. --21:27 Alistair Gilliland R.N. ( [email or web address] tech arrived and is with patient). --21:29 Alistair Gilliland R.N. 21:35 03/28/2017 Started bag #1 1000 mL IV Fluids IV NS (Saline); at 1000 mL/hr over 1 hour(s) via site #1. Allergies verified and confirmed 5 rights. IV patency established. IV site checked: no pain, redness, or swelling. IV flushed thoroughly pre- and post-medication administration. Completed per protocol. --23:02 Alistair Gilliland R.N. 21:35 03/28/2017 IV Fluids IV NS Discontinued: completed. Total amount infused: 1000 mL. IV patency established. IV site checked: no pain, redness, or swelling. IV flushed thoroughly. --23:01 Alistair Gilliland R.N. 22:35 03/28/2017 IV Fluids IV NS Discontinued: completed. Total amount infused: 1000 mL. IV patency established. IV site checked: no pain, redness, or swelling. IV flushed thoroughly. --23:02 Alistair Gilliland R.N. 22:45 03/28/2017 Dilaudid (HYDROmorphone HCl PF) IVP 1 mg given over 2 minute(s) via site #1. Allergies verified, confirmed 5 rights and sedative warning given to the patient and patient's detective automobile section. IV patency established. IV site checked: no pain, redness, or swelling. IV flushed thoroughly pre- and post-medication administration. IVP given by RN. --22:50 Alistair Gilliland R.N. DISPOSITION / DISCHARGE 22:59 03/28/17. HR: 72. O2 saturation: 94% on room air. --22:59 Alistair Gilliland R.N. 22:45 03/28/17. BP: 128/67. HR: 76. RR: 18. O2 saturation: 97% on room air. Pain level now: 01/04. --23:00 Alistair Gilliland R.N. Departure time: 23:00. Condition at departure: stable. No learning barriers present. Discharge instructions provided and reviewed with the patient. Reviewed warnings (sedation warning and medication warnings). Reviewed medication(s) side effects, precautions, dosing and course information. Treatments reviewed. Reviewed referrals for followup. Patient and detective automobile section verbalized understanding. Written instructions provided in Bulgarian. The patient was discharged home and accompanied by detective automobile section. She left the Emergency Department ambulatory and via private vehicle. Tab Card Press Operator driving. --23:00 Alistair Gilliland R.N. 23:01 03/28/2017 Site #1 removed upon discharge. Manual pressure and bandage applied. --23:01 Alistair Gilliland R.N. Locked/Released at 03/28/2017 23:04 by Alistair Gilliland R.N.
--- NOTE | 2017-03-28 22:46 | DIAGNOSTIC IMAGING REPORT ---
PROCEDURE: US ABDOMEN ULTRASOUND-LIMITED INDICATION: RUQ PAIN TECHNIQUE: Castro scale and color Doppler sonographic images of the abdomen were obtained. COMPARISON: Abdominal ultrasound 01/28/2017 FINDINGS: Enlarged liver (22 cm) with diffuse increased echogenicity. Multiple mobile gravel like gallstones. There is no wall thickening. Dilation of the common bile duct, 8 mm. Normal pancreas. IVC is patent. Normal hepatopetal flow. Normal right kidney measures 13.3 cm. IMPRESSION: 1. Cholelithiasis with dilation of the common bile duct suspicious for a distal obstruction. Recommend nuclear medicine HIDA scan. 2. Hepatomegaly and steatosis
--- NOTE | 2017-03-28 23:05 | ED DISCHARGE INSTRUCTIONS ---
Patient: TRISHA ZHOU General Instructions [facility] VisitID: [id number] [place] [address] 41y, F Registration Date/Time: 03/28/2017 Cholelithiasis. INSTRUCTIONS Drink plenty of fluids. (can breast feed after about 4-5 hours from Dilauidid). ADDITIONAL INFORMATION GallstonesWith Biliary Colic [Confirmed Dx] The abdominal pain that you have today is due to spasm of the gallbladder. The gallbladder is a small sac under the liver which stores and releases bile. Bile is a fluid that aids in the digestion of fat. A gallstone may form inside the gallbladder and block the flow of bile fluid. This causes mild to severe crampy pain in the mid or right upper abdomen with nausea and vomiting. Home Care: Rest in bed and follow a clear liquid diet until feeling better. If pain or nausea medicine was given to help with your symptoms, take these as directed. Fat in your diet makes the gallbladder contract and may cause increased pain. Therefore, avoid fat in your diet over the next two days and follow a low-fat diet after that. If you are overweight, a low-fat diet will also help you lose weight. Follow Up with your doctor. There is a 50% chance that you will have another episode of pain from your gallstones during the next 2 years. Removal of the gallbladder is the treatment of choice to prevent this. Schedule an appointment with your own doctor during the next week to discuss the treatment options. Get Prompt Medical Attention if any of the following occur: Pain gets worse or moves to the right lower abdomen Repeated vomiting Swelling of the abdomen Pain lasts over 6 hours Fever of 100.4F (38C) or higher, or as directed by your healthcare provider Weakness, dizziness or fainting Dark urine or light colored stools Yellow color of the skin or eyes Chest, arm, back, neck or jaw pain You have been given the following additional information: Biliary Colic With Gallstone (Confirmed) (Electronically signed by Esther Jacob P.A.-C 03/28/2017 22:45)
--- NOTE | 2017-03-28 23:05 | ED MED RECONCILIATION SUMMARY ---
Patient: TRISHA ZHOU Medication Reconciliation Report [facility] VisitID: [id number] [address] [place] [address] 41y, F Registration Date/Time: 03/28/2017 Weight: 122.0 kg Height/Length: 64 in. BMI: 46.2 ALLERGIES: Medical tape, Penicillins The patient's Home Medications are listed below: THE FOLLOWING MEDICATIONS NEED TO BE RECONCILED: Percocet Oral Vitamins Oral The source(s) of the original Home Medication information: Not obtained. The following Medications were given to the patient in the Emergency Department: IV NS IV Fluids bolus 0, then 1000 mL/hr, administered: 03/28/2017 8:35:00 PM Dilaudid [IVP] IVP 1 mg, administered: 03/28/2017 8:38:00 PM Dilaudid [IVP] IVP 1 mg, administered: 03/28/2017 9:25:00 PM Dilaudid [IVP] IVP 1 mg, administered: 03/28/2017 10:45:00 PM IV NS IV Fluids bolus 0, then 1000 mL/hr, administered: 03/28/2017 9:35:00 PM The following Medications were prescribed to the patient: None.
--- NOTE | 2017-03-28 23:05 | ED MAR SUMMARY ---
..... Medication Administration Record [facility] [address] [place] [address] Patient: TRISHA ZHOU Visit ID: [id number] 41y, F Weight: 122.0 kg Height/Length: 64 in BMI: 46.2 ALLERGIES: Medical tape, Penicillins Start 20:35 03/28/2017 Alistair Gilliland R.N., Stop 21:35 03/28/2017 Alistair Gilliland R.N. Medication Administered: IV NS (SALINE), Dose: IV Fluids over 1 hour(s), Rate: 1000 mL/hr, Dispensed: 1000 mL bag, Site: #1 right AC. Medication Ordered: IV NS : initial bolus 1000 mL (1000 mL/hr), then 1000 mL/hr for X1 (NOW); Lewis. Given 20:38 03/28/2017 Alistair Gilliland R.N. Medication Administered: DILAUDID [IVP] (HYDROMORPHONE HCL PF), Dose: 1 mg IVP over 2 minute(s), Site: #1 right AC. Medication Ordered: Dilaudid IV 1 mg (HIGH ALERT MEDICATION, NOW). Given 21:25 03/28/2017 Alistair Gilliland R.N. Medication Administered: DILAUDID [IVP] (HYDROMORPHONE HCL PF), Dose: 1 mg IVP over 2 minute(s), Site: #1 right AC. Medication Ordered: Dilaudid IV 1 mg (HIGH ALERT MEDICATION, NOW). Start 21:35 03/28/2017 Alistair Gilliland R.N., Stop 22:35 03/28/2017 Alistair Gilliland R.N. Medication Administered: IV NS (SALINE), Dose: IV Fluids over 1 hour(s), Rate: 1000 mL/hr, Dispensed: 1000 mL bag, Site: #1 right AC. Medication Ordered: IV NS : initial bolus 1000 mL (1000 mL/hr), then 1000 mL/hr for X1 (NOW); Lewis. Given 22:45 03/28/2017 Alistair Gilliland R.N. Medication Administered: DILAUDID [IVP] (HYDROMORPHONE HCL PF), Dose: 1 mg IVP over 2 minute(s), Site: #1 right AC. Medication Ordered: Dilaudid IV 1 mg (HIGH ALERT MEDICATION, NOW).
--- NOTE | 2017-03-28 23:05 | ED MAR SUMMARY ---
..... Medication Administration Record [facility] [address] [place] [address] Patient: TRISHA ZHOU Visit ID: [id number] 41y, F Weight: 122.0 kg Height/Length: 64 in BMI: 46.2 ALLERGIES: Medical tape, Penicillins Start 20:35 03/28/2017 Alistair Gilliland R.N., Stop 21:35 03/28/2017 Alistair Gilliland R.N. Medication Administered: IV NS (SALINE), Dose: IV Fluids over 1 hour(s), Rate: 1000 mL/hr, Dispensed: 1000 mL bag, Site: #1 right AC. Medication Ordered: IV NS : initial bolus 1000 mL (1000 mL/hr), then 1000 mL/hr for X1 (NOW); Lewis. Given 20:38 03/28/2017 Alistair Gilliland R.N. Medication Administered: DILAUDID [IVP] (HYDROMORPHONE HCL PF), Dose: 1 mg IVP over 2 minute(s), Site: #1 right AC. Medication Ordered: Dilaudid IV 1 mg (HIGH ALERT MEDICATION, NOW). Given 21:25 03/28/2017 Alistair Gilliland R.N. Medication Administered: DILAUDID [IVP] (HYDROMORPHONE HCL PF), Dose: 1 mg IVP over 2 minute(s), Site: #1 right AC. Medication Ordered: Dilaudid IV 1 mg (HIGH ALERT MEDICATION, NOW). Start 21:35 03/28/2017 Alistair Gilliland R.N., Stop 22:35 03/28/2017 Alistair Gilliland R.N. Medication Administered: IV NS (SALINE), Dose: IV Fluids over 1 hour(s), Rate: 1000 mL/hr, Dispensed: 1000 mL bag, Site: #1 right AC. Medication Ordered: IV NS : initial bolus 1000 mL (1000 mL/hr), then 1000 mL/hr for X1 (NOW); Lewis. Given 22:45 03/28/2017 Alistair Gilliland R.N. Medication Administered: DILAUDID [IVP] (HYDROMORPHONE HCL PF), Dose: 1 mg IVP over 2 minute(s), Site: #1 right AC. Medication Ordered: Dilaudid IV 1 mg (HIGH ALERT MEDICATION, NOW).
--- NOTE | 2017-03-28 23:05 | ED DISCHARGE INSTRUCTIONS ---
Patient: TRISHA ZHOU General Instructions [facility] VisitID: [id number] [place] [address] 41y, F Registration Date/Time: 03/28/2017 Cholelithiasis. INSTRUCTIONS Drink plenty of fluids. (can breast feed after about 4-5 hours from Dilauidid). ADDITIONAL INFORMATION GallstonesWith Biliary Colic [Confirmed Dx] The abdominal pain that you have today is due to spasm of the gallbladder. The gallbladder is a small sac under the liver which stores and releases bile. Bile is a fluid that aids in the digestion of fat. A gallstone may form inside the gallbladder and block the flow of bile fluid. This causes mild to severe crampy pain in the mid or right upper abdomen with nausea and vomiting. Home Care: Rest in bed and follow a clear liquid diet until feeling better. If pain or nausea medicine was given to help with your symptoms, take these as directed. Fat in your diet makes the gallbladder contract and may cause increased pain. Therefore, avoid fat in your diet over the next two days and follow a low-fat diet after that. If you are overweight, a low-fat diet will also help you lose weight. Follow Up with your doctor. There is a 50% chance that you will have another episode of pain from your gallstones during the next 2 years. Removal of the gallbladder is the treatment of choice to prevent this. Schedule an appointment with your own doctor during the next week to discuss the treatment options. Get Prompt Medical Attention if any of the following occur: Pain gets worse or moves to the right lower abdomen Repeated vomiting Swelling of the abdomen Pain lasts over 6 hours Fever of 100.4F (38C) or higher, or as directed by your healthcare provider Weakness, dizziness or fainting Dark urine or light colored stools Yellow color of the skin or eyes Chest, arm, back, neck or jaw pain You have been given the following additional information: Biliary Colic With Gallstone (Confirmed) (Electronically signed by Esther Jacob P.A.-C 03/28/2017 22:45)
--- NOTE | 2017-03-28 23:05 | ED MED RECONCILIATION SUMMARY ---
Patient: TRISHA ZHOU Medication Reconciliation Report [facility] VisitID: [id number] [address] [place] [address] 41y, F Registration Date/Time: 03/28/2017 Weight: 122.0 kg Height/Length: 64 in. BMI: 46.2 ALLERGIES: Medical tape, Penicillins The patient's Home Medications are listed below: THE FOLLOWING MEDICATIONS NEED TO BE RECONCILED: Percocet Oral Vitamins Oral The source(s) of the original Home Medication information: Not obtained. The following Medications were given to the patient in the Emergency Department: IV NS IV Fluids bolus 0, then 1000 mL/hr, administered: 03/28/2017 8:35:00 PM Dilaudid [IVP] IVP 1 mg, administered: 03/28/2017 8:38:00 PM Dilaudid [IVP] IVP 1 mg, administered: 03/28/2017 9:25:00 PM Dilaudid [IVP] IVP 1 mg, administered: 03/28/2017 10:45:00 PM IV NS IV Fluids bolus 0, then 1000 mL/hr, administered: 03/28/2017 9:35:00 PM The following Medications were prescribed to the patient: None.
== END 2017-03-28 23:01 | disposition home or self-care (01) ==
LOC: ED SRH 20:08
DX: K80.20 Calculus of gallbladder without cholecystitis without obstruction (principal); Z88.0 Allergy status to penicillin
CPT/HCPCS: 90004; 90100; 92235; 95059

== ENCOUNTER 2017-04-01 10:41 | Day surgery (SDC) | payer OTHER ==
[~2017-04-01] VITALS: Ht 162.6 cm; Wt 121.0 kg
--- NOTE | 2017-04-01 14:53 | DIAGNOSTIC IMAGING REPORT ---
PROCEDURE: XR INTRAOPERATIVE LAP SUPA INDICATION: GALLSTONES TECHNIQUE: Intraoperative fluoroscopy provided for Dr. Holman performing an intraoperative cholangiogram following cholecystectomy. Total fluoroscopy time 15 seconds Cumulative dose 8.7 mGy. COMPARISON: None. FINDINGS: A single intraoperative fluoroscopic spot image of the right upper quadrant of the abdomen demonstrates cannulation of the cystic duct stump and opacification of the intrahepatic and extrahepatic biliary tree. There are no filling defects. There is normal passage of contrast into the duodenum. IMPRESSION: 1. Negative intraoperative cholangiogram.
[2017-04-01] MEDS ORDERED: ENDOCET1 TAB PO (15:11)
--- NOTE | 2017-04-01 15:12 | Provider's Discharge Care Plan ---
Problem, Goal, Plan Problem List 1. S/P laparoscopic cholecystectomy
--- NOTE | 2017-04-01 15:12 | Provider's Discharge Care Plan ---
Problem, Goal, Plan Problem List 1. S/P laparoscopic cholecystectomy
--- NOTE | 2017-04-01 15:52 | OPERATIVE REPORT ---
DATE OF SURGERY: 04/01/2017 SURGEON: Kareem Holman MD TRANSPORTATION ENGINEER: Seda Zhou III, MD PREOPERATIVE DIAGNOSIS: 1. Cholelithiasis with chronic cholecystitis POSTOPERATIVE DIAGNOSIS: 1. Cholelithiasis with chronic cholecystitis PROCEDURE PERFORMED: 1. Laparoscopic cholecystectomy and cholangiography ANESTHESIA: General. INDICATIONS: The patient is a 41-year-old woman who was recently , who was having attacks of right upper quadrant abdominal pain and was found to have gallstones. SURGICAL TECHNIQUE: The patient was taken to the operating room, where a general anesthetic was administered and the patient prepped and draped in the usual sterile fashion. The patient received an orogastric tube, IV antibiotics, and sequential compression devices. A local anesthetic of 0.5% Marcaine with epinephrine was infiltrated. An intraumbilical incision was made and a Veress needle used to insufflate the abdominal cavity. A 10 mm cannula was passed and 3 additional trocars were placed in the upper abdomen in the usual locations. The gallbladder was elevated and the cystic duct isolated at the neck of the gallbladder. A clip was placed. A fluoroscopic cholangiogram was carried out, which demonstrated free flow into the duodenum and no filling defects. The cystic duct was doubly clipped and divided. The cystic artery was also clipped and divided and the gallbladder stripped from the gallbladder fossa using electrocautery. It was delivered to the upper midline trocar site where it was suctioned free of all remaining contents and removed from the abdominal cavity. The operative site was irrigated and found to be hemostatic, with no evidence of bile leaks. Free fluid was suctioned away. Additional Marcaine was instilled, gas was evacuated, and the skin was closed in the midline with interrupted subcuticular 4-0 Vicryl suture. Steri-Strips and dressings were placed, and the patient left in stable condition. No intraoperative complications were encountered.
[2017-04-01 16:05] VITALS: BP 118/63
[2017-04-01 16:20] VITALS: BP 120/68
[2017-04-01 16:30] VITALS: BP 122/62
[2017-04-01 16:45] VITALS: BP 116/63
[2017-04-01 17:00] VITALS: BP 124/65
[2017-04-01 17:15] VITALS: BP 125/64
== END 2017-04-01 17:45 | disposition home or self-care (01) ==
LOC: OR SRH 10:41 → OB SRH 10:42 → OR SRH 12:30
PROVIDERS: Surgery
PROC: BF131ZZ Fluoroscopy of Gallbladder and Bile Ducts using Low Osmolar Contrast (ICD-10-PCS; principal; 2017-04-01 12:30)
PROC: 0FT44ZZ Resection of Gallbladder, Percutaneous Endoscopic Approach (ICD-10-PCS; principal; 2017-04-01 12:30)
DX: K80.10 Calculus of gallbladder with chronic cholecystitis without obstruction (principal)